=== PATIENT | female | born 1975 | race Caucasian/White ===

== ENCOUNTER 2022-06-18 10:11 | Day surgery (SDC) | payer OTHER ==
[2022-06-18 11:19] LABS: ALT (SGPT) 33 U/L (8-55); AST (SGOT) 42 U/L (5-34); Albumin 3.6 g/dL (3.5-5.0); Alkaline Phosphatase 125 U/L (40-110); Anion Gap 15 mmol/L (10-20); BUN (Urea Nitrogen) 24 mg/dL (7.0-18.7); Bilirubin, Total 1.8 mg/dL (0.2-1.2); Calc. Creatinine Clearance 0 mL/min (70-130); Calcium 9.1 mg/dL (7.8-10.44); Carbon Dioxide 23 mmol/L (22-29); Chloride 102 mmol/L (98-107); Estimated GFR 37; Globulin 3.4 g/dL (2.4-3.5); Glucose 124 mg/dL (70-105); Lipase 6 U/L (8-78); Potassium 3.6 mmol/L (3.5-5.1); Sodium 136 mmol/L (136-145)
[2022-06-18] MEDS ORDERED: Ketorolac Tromethamine 30 MG/ML VIAL ONE ×2 (11:35→18:26)
[2022-06-18] MEDS ORDERED: Morphine 4 MG/ML VIAL ONE ×2 (11:35→13:21)
[2022-06-18 11:59] LABS: Hemoglobin 12.4 g/dL (12.0-16.0); Mean Corpuscular HGB CONC 30.8 g/dL (32.0-36.0); Mean Corpuscular Hemoglobin 29.9 pg (27.0-31.0); Mean Corpuscular Volume 97.1 fl (78.0-98.0); Platelet Count 263 10x3/uL (130-400); RBC Distribution Width 12.5 % (11.5-14.5); Red Blood Cell (RBC) Count 4.15 mill/uL (4.20-5.40); White Blood Cell (WBC) Count 24.9 10x3/uL (4.8-10.8)
[2022-06-18 12:03] LABS: Band 41 % (5-11); Lymphocytes 2 % (21-51); MDiff Complete? YES; Metamyelocyte 1 % (0-0); Monocytes 1 % (0-10); Neutrophil 55 % (42-75); Platelet Morphology Comment Appears Adequate; RBC Morphology Normal; Toxic Granulation SLIGHT; Vacuoles SLIGHT
[2022-06-18] MEDS ORDERED: Piperacillin/Tazobactam 4.5 GM VIAL ONE (13:12)
[2022-06-18 13:28] LABS: Bacteria/HPF 4+ HPF (None Seen); Bilirubin Negative (Negative); Blood, Urine 1+ (Negative); Clarity Extra Turbid (Clear); Glucose, Urine (Dipstick) Normal (Negative); Ketone, Urine 10 mg/dL (Negative); Leukocyte 75 Leu/uL (Negative); Nitrite Negative (Negative); Protein, Urine (Dipstick) 70 mg/dL (Neg-Trace); RBC/HPF 0-3 HPF (0-3); Specific Gravity, Urine 1.016 (1.002-1.036); Urobilinogen 6 mg/dL (Less than 2); pH, Urine 5.5 (5.0-9.0)
[2022-06-18 13:29] LABS: Pregnancy Test - Urine (BHCG) Negative (Negative); Pregu Control Background? CLEAR/WHITE (CLR/WHITE); Pregu Control Bar Appear? YES (CONTROL BAR); Specific Gravity 1.016 (1.002-1.036)
[2022-06-18] MEDS ORDERED: Sodium Chloride 0.9% 1,000 ML IV SCH ×2 (14:30)
[2022-06-18] MEDS ORDERED: Scopolamine 1.5 mg/72 hour Patch TD SCH (14:30)
[2022-06-18] MEDS ORDERED: Iopamidol 30 ML ONE (16:11)
[2022-06-18] MEDS ORDERED: Bupivacaine HCl 0.5%/Epinephrine 1:200,000/PF 30 ml Vial ONE (16:11)
[2022-06-18 16:39] LABS: SARS-CoV-2 NAA Rapid Test Not Detected (NotDetected)
[2022-06-18] MEDS ORDERED: Midazolam HCl 2 mg/2 ml Vial ONE (16:50)
[2022-06-18] MEDS ORDERED: FENTANYL 50 MCG/ML 1 ML VIAL ONE ×2 (16:51→20:04)
[2022-06-18] MEDS ORDERED: fentaNYL PF 100 MCG/2 ML SYRINGE ONE (18:13)
[2022-06-18] MEDS ORDERED: Promethazine HCl 25 MG/ML VIAL ONE (18:13)
[2022-06-18] MEDS ORDERED: Levofloxacin 500 mg/D5W 100 ml Premix Bag ONE (18:20)
[2022-06-18] MEDS ORDERED: NEOSTIGMINE 3 MG/3 ML SYR 3 MG/3 ML SYRINGE ONE (18:26)
[2022-06-18] MEDS ORDERED: Dexamethasone 20 MG/5 ML VIAL ONE (18:26)
[2022-06-18] MEDS ORDERED: Rocuronium Bromide 10 MG/ML (10ML VIAL) ONE (18:26)
[2022-06-18] MEDS ORDERED: GLYCOPYRROLATE/PF 0.2 MG/ML VIAL ONE (18:26)
[2022-06-18] MEDS ORDERED: PROPOFOL 200 MG/20 ML VIAL ONE (18:26)
[2022-06-18] MEDS ORDERED: Ondansetron PF 4 MG/2 ML Vial ONE (18:26)
[2022-06-18] MEDS ORDERED: Promethazine HCl 25 MG/ML VIAL IVPB PRN (19:36)
[2022-06-18] MEDS ORDERED: PACU-Morphine 4MG/ML VIAL SLOW IVP PRN (19:36)
[2022-06-18] MEDS ORDERED: HYDROmorphone 2 MG/ML VIAL SLOW IVP PRN (19:36)
[2022-06-18] MEDS ORDERED: Promethazine HCl 25 MG/ML VIAL IM PRN (19:36)
[2022-06-18] MEDS ORDERED: Ondansetron HCl/PF 4 MG/2 ML Vial IVP PRN (19:36)
== END 2022-06-18 20:55 | disposition home or self-care (01) ==
LOC: ERS 10:11 → SDC/OP 17:55
PROVIDERS: ATTEND Specialist
PROC: BF101ZZ Fluoroscopy of Bile Ducts using Low Osmolar Contrast (ICD-10-PCS; principal; 2022-06-18)
PROC: 0FT44ZZ Resection of Gallbladder, Percutaneous Endoscopic Approach (ICD-10-PCS; principal; 2022-06-18)
DX: K80.12 Calculus of gallbladder with acute and chronic cholecystitis without obstruction (principal); K82.8 Other specified diseases of gallbladder; K82.A1 Gangrene of gallbladder in cholecystitis; Z20.822 Contact with and (suspected) exposure to COVID-19
CPT/HCPCS: 36415; 47532; 76705; 80053; 81003; 81015; 81025; 83690; 85025; 85060; 87077; 87086; 87186; 88304; C1889; J1100; J1610; J1885; J1956; J2250; J2270; J2405; J2543; J2550; J2704; J3010; J3490; J7050; Q9967; U0002